=== PATIENT | female | born 1985 | race Caucasian/White ===

== ENCOUNTER 2016-10-05 19:57 | Emergency (ER) | payer MEDICARE, MEDICAID ==
[~2016-10-05 19:57] MED LIST: ADDERALL30 MG PO; ALEVE 220MG220 MG PO; ALPRAZOLAM1 MG PO; AMBIEN10 MG PO; AMBIEN5 M1 PO; AMOXICILLIN875 MG PO; BACTRIM DS 8001 TAB PO; CEPHALEXIN500 M1 PO; CEPHALEXIN500 M2 PO; FLEXERIL 1010 MG/TAB PO; LATUDA80 MG PO; LEVSIN-SL0.125 MG SL; METRONIDAZOLE500 M1 PO; NAPROSYN500 M1 PO; NORCO 325 MG-51 TAB PO; NORCO 325 MG-7.1 TA1 PO; OXYCODONE15 MG PO; PERCOCET 325 MG1 TA2 PO; PREDNISONE20 M1 PO; PROVENTIL0.09 MG/A1 IH; XANAX1 M1 PO; XANAX2 MG PO; ZOFRAN ODT8 M1 PO; ZOFRAN4 M1 PO; ZOLOFT100 MG PO
[2016-10-05] MEDS ORDERED: NORCO 325 MG-51 TAB PO (20:02)
[2016-10-05] MEDS ORDERED: AMOXICILLIN 50500 MG PO (20:02)
[2016-10-31] MEDS ORDERED: AMBIEN10 MG PO (14:39)
== END 2016-10-05 20:10 | disposition home or self-care (01) ==
LOC: ED 19:57
DX: K08.89 Other specified disorders of teeth and supporting structures (principal); K03.81 Cracked tooth; K01.1 Impacted teeth

== ENCOUNTER 2016-10-23 21:24 | Emergency (ER) | payer MEDICARE, MEDICAID ==
[~2016-10-23 21:24] MED LIST changes: +AMOXICILLIN 50500 MG PO
[2016-10-31] MEDS ORDERED: AMBIEN10 MG PO (14:39)
== END 2016-10-23 23:08 | disposition home or self-care (01) ==
LOC: ED 21:24
DX: N83.291 Other ovarian cyst, right side (principal); F17.210 Nicotine dependence, cigarettes, uncomplicated; F12.10 Cannabis abuse, uncomplicated
CPT/HCPCS: J1885

== ENCOUNTER → 2016-10-25 | Outpatient (CLI) | payer MEDICARE, MEDICAID ==
[~2016-10-25] MED LIST changes: +FLAGYL500 M1 PO; +IBUPROFEN800 MG PO; +NEURONTIN300 M1 PO
== END ==
LOC: RAD 08:56
DX: R10.31 Right lower quadrant pain (principal); Z98.890 Other specified postprocedural states

== ENCOUNTER 2016-10-27 21:28 | Emergency (ER) | payer MEDICARE, MEDICAID ==
[~2016-10-27 21:28] MED LIST changes: -FLAGYL500 M1 PO; -IBUPROFEN800 MG PO; -NEURONTIN300 M1 PO
[2016-10-27] MEDS ORDERED: FLAGYL500 M1 PO (22:55)
[2016-10-31] MEDS ORDERED: AMBIEN10 MG PO (14:39)
== END 2016-10-27 23:03 | disposition home or self-care (01) ==
LOC: ED 21:28
DX: N76.0 Acute vaginitis (principal); R10.32 Left lower quadrant pain; R10.31 Right lower quadrant pain
CPT/HCPCS: J1885; Q0111

== ENCOUNTER 2016-10-31 14:50 | Emergency (ER) | payer MEDICARE, MEDICAID ==
[~2016-10-31 14:50] MED LIST changes: +FLAGYL500 M1 PO
[2016-10-31] MEDS ORDERED: IBUPROFEN800 MG PO (16:03)
== END 2016-10-31 16:06 | disposition home or self-care (01) ==
LOC: ED 14:50
DX: S80.01XA Contusion of right knee, initial encounter (principal); W19.XXXA Unspecified fall, initial encounter; Y92.027 Garden or yard of mobile home as the place of occurrence of the external cause

== ENCOUNTER 2017-02-04 20:54 | Emergency (ER) | payer MEDICARE ==
[~2017-02-04] VITALS: Ht 149.9 cm; Wt 97.7 kg
[~2017-02-04 20:54] MED LIST changes: +IBUPROFEN800 MG PO
[2017-02-04] MEDS ORDERED: NEURONTIN300 M1 PO (21:12)
[2017-02-04 21:20] VITALS: BP 147/90
== END 2017-02-04 21:20 | disposition home or self-care (01) ==
LOC: ED 20:54
DX: M79.2 Neuralgia and neuritis, unspecified (principal); Z98.890 Other specified postprocedural states
CPT/HCPCS: J1885

== ENCOUNTER 2017-02-17 01:12 | Emergency (ER) | payer MEDICARE ==
[~2017-02-17] VITALS: Ht 149.9 cm; Wt 97.7 kg
[~2017-02-17 01:12] MED LIST changes: +NEURONTIN300 M1 PO
[2017-02-17 01:25] VITALS: BP 140/85
== END 2017-02-17 01:59 | disposition left against medical advice (07) ==
LOC: ED 01:12
DX: S01.512A Laceration without foreign body of oral cavity, initial encounter (principal); S00.93XA Contusion of unspecified part of head, initial encounter; Y04.0XXA Assault by unarmed brawl or fight, initial encounter

== ENCOUNTER 2017-08-08 01:29 | Emergency (ER) | payer MEDICARE ==
[~2017-08-08] VITALS: Ht 149.9 cm; Wt 100.8 kg
[2017-08-08 02:26] LABS: EOS # 0.1 (0.04-0.40); HEMATOCRIT 38.3 % (37.0-47.0); HEMOGLOBIN 12.5 g/dL (12.5-16.0); LYMPH# 2.8 (1.50-4.00); MEAN CELL VOLUME 83 fl (78-100); MEAN CORPUSCULAR HEMOGLOBIN 27 pg (27-31); MEAN CORPUSCULAR HGB CONC 33 g/dL (33-37); MEAN PLATELET VOLUME 11.7 fl (7.4-10.4); MONO # 0.9 (0.20-0.80); NEU # 3.2 (1.40-6.50); PLATELET COUNT 271 K/mm3 (130-400); RED BLOOD COUNT 4.63 M/mm3 (4.10-5.30); RED CELL DISTRIBUTION WIDTH 14.6 % (11.5-14.5); WHITE BLOOD COUNT 7.1 K/mm3 (4.8-10.8)
[2017-08-08] MEDS ORDERED: GUAIFEN-CODEIN118 ML PO (02:56)
[2017-08-08] MEDS ORDERED: PREDNISONE20 M1 PO (02:56)
[2017-08-08 03:59] VITALS: BP 119/74
== END 2017-08-08 03:10 | disposition home or self-care (01) ==
LOC: ED 01:29
PROVIDERS: Family Medicine
DX: J45.909 Unspecified asthma, uncomplicated (principal); F31.9 Bipolar disorder, unspecified; F41.9 Anxiety disorder, unspecified; F17.200 Nicotine dependence, unspecified, uncomplicated; F12.90 Cannabis use, unspecified, uncomplicated

== ENCOUNTER → 2018-03-30 | Outpatient (CLI) | payer MEDICARE, MEDICAID ==
[~2018-03-30] MED LIST changes: +GUAIFEN-CODEIN118 ML PO
== END ==
LOC: RAD 15:43
DX: R10.2 Pelvic and perineal pain (principal)

== ENCOUNTER 2018-04-10 13:09 | Emergency (ER) | payer MEDICARE, MEDICAID ==
[~2018-04-10] VITALS: Ht 149.9 cm; Wt 108.6 kg
[2018-04-10] MEDS ORDERED: LAMOTRIGINE100 M3 PO (13:16)
[2018-04-10] MEDS ORDERED: QUETIAPINE FUMA25 M3 PO (13:16)
[2018-04-10] MEDS ORDERED: TRAMADOL 50 MG TAB PO (13:58)
[2018-04-10] MEDS ORDERED: CEPHALEXIN500 M1 PO (13:58)
[2018-04-10 14:23] VITALS: BP 118/63
== END 2018-04-10 14:13 | disposition home or self-care (01) ==
LOC: ED 13:09
DX: S91.312A Laceration without foreign body, left foot, initial encounter (principal); W22.8XXA Striking against or struck by other objects, initial encounter; Y92.009 Unspecified place in unspecified non-institutional (private) residence as the place of occurrence of the external cause

== ENCOUNTER 2020-04-14 23:54 | Emergency (ER) | payer MEDICARE, MEDICAID ==
[~2020-04-14] VITALS: Ht 149.9 cm; Wt 116.8 kg
[~2020-04-14 23:54] MED LIST changes: +LAMOTRIGINE100 M3 PO; +QUETIAPINE FUMA25 M3 PO; +TRAMADOL 50 MG TAB PO
[2020-04-15] MEDS ORDERED: VRAYLAR3 MG PO (00:21)
[2020-04-15] MEDS ORDERED: DESYREL DIVIDO150 M1 PO (00:21)
[2020-04-15] MEDS ORDERED: ZOLOFT 100MG100 MG PO (00:21)
[2020-04-15] MEDS ORDERED: KLONOPIN 1MG1 MG PO (00:22)
[2020-04-15] MEDS ORDERED: NORCO 325 MG-51 TA1 PO (00:46)
[2020-04-15 00:56] VITALS: BP 148/86
== END 2020-04-15 00:56 | disposition home or self-care (01) ==
LOC: ED 23:54
DX: M54.5 Low back pain (principal); F41.9 Anxiety disorder, unspecified; F32.9 Major depressive disorder, single episode, unspecified; F17.210 Nicotine dependence, cigarettes, uncomplicated

== ENCOUNTER 2020-04-24 15:54 | Emergency (ER) | payer MEDICARE, MEDICAID ==
[~2020-04-24 15:54] MED LIST changes: +DESYREL DIVIDO150 M1 PO; +KLONOPIN 1MG1 MG PO; +NORCO 325 MG-51 TA1 PO; +VRAYLAR3 MG PO; +ZOLOFT 100MG100 MG PO
[2020-04-24 16:12] VITALS: BP 155/86
== END 2020-04-24 16:51 | disposition left against medical advice (07) ==
LOC: ED 15:54
DX: M54.5 Low back pain (principal)

== ENCOUNTER 2020-08-22 17:01 | Emergency (ER) | payer MEDICARE, MEDICAID ==
[~2020-08-22] VITALS: Ht 149.9 cm; Wt 109.8 kg
[~2020-08-22 17:01] MED LIST changes: +IBU800 M1 PO; +STRATTERA 40MG40 MG PO; +ULTRAM50 M1 PO
[2020-08-22] MEDS ORDERED: SUBOXONE 8 MG-21 FIL SL (17:27)
[2020-08-22] MEDS ORDERED: BUPRENO-NALOX1 EACH SL (17:27)
[2020-08-22] MEDS ORDERED: NEURONTIN300 MG/CAP PO (17:28)
[2020-08-22 18:15] LABS: EOS # 0.1 (0.04-0.40); EOS % 1.7 % (1.0-5.0); HEMATOCRIT 38.8 % (37.0-47.0); HEMOGLOBIN 14.8 g/dL (12.5-16.0); LYMPH# 2.4 (1.50-4.00); MEAN CELL VOLUME 96 fl (78-100); MEAN CORPUSCULAR HGB CONC 38 g/dL (33-37); MEAN PLATELET VOLUME 10.1 fl (7.4-10.4); MONO # 0.7 (0.20-0.80); NEU # 4.3 (1.40-6.50); PLATELET COUNT 302 K/mm3 (130-400); RED BLOOD COUNT 4.03 M/mm3 (4.10-5.30); WHITE BLOOD COUNT 7.5 K/mm3 (4.8-10.8)
[2020-08-22 18:18] LABS: MEAN CORPUSCULAR HEMOGLOBIN 37 pg (27-31); RED CELL DISTRIBUTION WIDTH 18.1 % (11.5-14.5)
[2020-08-22 18:21] LABS: ALBUMIN 4.4 g/dL (3.5-5.0); SODIUM 139 mmol/L (136-145)
[2020-08-22 18:22] LABS: CALCIUM 9.4 mg/dL (8.3-10.5)
[2020-08-22 18:24] LABS: GLUCOSE 100 mg/dL (65-105); TOTAL PROTEIN 7.6 g/dL (6.4-8.3)
[2020-08-22 18:25] LABS: CARBON DIOXIDE 25 mmol/L (22-29)
[2020-08-22 18:26] LABS: TOTAL BILIRUBIN 0.8 mg/dL (0.2-1.2)
[2020-08-22 18:29] LABS: AST-SGOT 25 U/L (5-34)
[2020-08-22 18:30] LABS: ALT/SGPT 27 U/L (0-55)
[2020-08-22 18:37] LABS: TROPONIN-I < 0.03 ng/mL (<0.030)
[2020-08-22 19:26] LABS: D-DIMER 0.57 mg/L FEU (0.15-0.50)
[2020-08-22] MEDS ORDERED: AZITHROMYCIN 250MGPK PO (22:23)
[2020-08-22] MEDS ORDERED: PREDNISONE20 M1 PO (22:23)
[2020-08-22 23:22] VITALS: BP 148/88
== END 2020-08-22 22:34 | disposition left against medical advice (07) ==
LOC: ED 17:01
PROVIDERS: Physician Assistant
DX: J12.9 Viral pneumonia, unspecified (principal); J90 Pleural effusion, not elsewhere classified; F41.9 Anxiety disorder, unspecified; Z20.828 Contact with and (suspected) exposure to other viral communicable diseases; Z88.8 Allergy status to other drugs, medicaments and biological substances; Z79.891 Long term (current) use of opiate analgesic; Z79.899 Other long term (current) drug therapy
CPT/HCPCS: J2060; J2405; J2930; J7030; Q9967

== ENCOUNTER 2020-08-25 15:00 | Emergency (ER) | payer MEDICARE, MEDICAID ==
[~2020-08-25 15:00] MED LIST changes: +AZITHROMYCIN 250MGPK PO; +BUPRENO-NALOX1 EACH SL; +NEURONTIN300 MG/CAP PO; +SUBOXONE 8 MG-21 FIL SL
[2020-08-25 17:03] LABS: EOS % 0.2 % (1.0-5.0); HEMATOCRIT 31.4 % (37.0-47.0); HEMOGLOBIN 9.6 g/dL (12.5-16.0); LYMPH# 1.5 (1.50-4.00); MEAN CELL VOLUME 79 fl (78-100); MEAN CORPUSCULAR HGB CONC 31 g/dL (33-37); MEAN PLATELET VOLUME 11.4 fl (7.4-10.4); MONO # 0.7 (0.20-0.80); NEU # 8.5 (1.40-6.50); PLATELET COUNT 290 K/mm3 (130-400); RED BLOOD COUNT 3.99 M/mm3 (4.10-5.30); RED CELL DISTRIBUTION WIDTH 16.6 % (11.5-14.5); WHITE BLOOD COUNT 10.7 K/mm3 (4.8-10.8)
[2020-08-25 17:05] LABS: ALBUMIN 3.2 g/dL (3.5-5.0); POTASSIUM 4.3 mmol/L (3.5-5.1)
[2020-08-25 17:06] LABS: CALCIUM 8.9 mg/dL (8.3-10.5)
[2020-08-25 17:07] LABS: MEAN CORPUSCULAR HEMOGLOBIN 24 pg (27-31)
[2020-08-25 17:08] LABS: TOTAL PROTEIN 6.2 g/dL (6.4-8.3)
[2020-08-25 17:09] LABS: TOTAL BILIRUBIN 0.3 mg/dL (0.2-1.2)
[2020-08-25] MEDS ORDERED: FUROSEMIDE20 MG PO (17:59)
[2020-08-25 18:23] VITALS: BP 140/97
== END 2020-08-25 18:23 | disposition home or self-care (01) ==
LOC: ED 15:00
PROVIDERS: Family Medicine
DX: J12.9 Viral pneumonia, unspecified (principal); I50.9 Heart failure, unspecified; F31.9 Bipolar disorder, unspecified; Z20.828 Contact with and (suspected) exposure to other viral communicable diseases; Z88.6 Allergy status to analgesic agent; Z79.52 Long term (current) use of systemic steroids

== ENCOUNTER 2020-10-23 16:46 | Emergency (ER) | payer MEDICARE, MEDICAID ==
[~2020-10-23] VITALS: Ht 149.9 cm; Wt 106.8 kg
[~2020-10-23 16:46] MED LIST changes: +FUROSEMIDE20 MG PO
[2020-10-23 17:08] VITALS: BP 165/99
== END 2020-10-23 17:57 | disposition left against medical advice (07) ==
LOC: ED 16:46
DX: M54.6 Pain in thoracic spine (principal); Z88.5 Allergy status to narcotic agent; Z88.8 Allergy status to other drugs, medicaments and biological substances

== ENCOUNTER 2021-02-12 18:33 | Emergency (ER) | payer MEDICARE, MEDICAID ==
[2021-02-12] MEDS ORDERED: CYCLOBENZAPRINE10 M1 PO (19:55)
[2021-02-12 20:02] VITALS: BP 128/58
== END 2021-02-12 20:02 | disposition home or self-care (01) ==
LOC: ED 18:33
DX: M54.42 Lumbago with sciatica, left side (principal); G89.29 Other chronic pain; J45.909 Unspecified asthma, uncomplicated; F17.200 Nicotine dependence, unspecified, uncomplicated
CPT/HCPCS: J1100; J1885

== ENCOUNTER 2021-05-24 19:46 | Emergency (ER) | payer MEDICARE ==
[~2021-05-24 19:46] MED LIST changes: +CYCLOBENZAPRINE10 M1 PO
[2021-05-24 20:24] VITALS: BP 141/87
== END 2021-05-24 20:24 | disposition home or self-care (01) ==
LOC: ED 19:46
DX: M54.42 Lumbago with sciatica, left side (principal); Z88.5 Allergy status to narcotic agent
CPT/HCPCS: J1040

== ENCOUNTER 2021-06-06 12:15 | Emergency (ER) | payer MEDICARE ==
[2021-06-06 12:22] VITALS: BP 162/105
[2021-06-06] MEDS ORDERED: HYDROXYZINE HCL25 M1 PO (12:46)
[2021-06-06] MEDS ORDERED: BUPRENORP-NALO1 EAC1 SL (12:46)
[2021-06-06] MEDS ORDERED: VRAYLAR3 MG PO (12:47)
[2021-06-06] MEDS ORDERED: DESYREL DIVIDO150 M1 PO (12:47)
[2021-06-06] MEDS ORDERED: OLANZAPINE10 M3 PO (12:47)
[2021-06-06] MEDS ORDERED: SERTRALINE50 MG PO (12:47)
[2021-06-06 12:53] LABS: BASO # 0.01 (0.02-0.10); EOS # 0.02 (0.04-0.40); EOS % 0.2 % (1.0-5.0); HEMATOCRIT 44.5 % (37.0-47.0); HEMOGLOBIN 14.2 g/dL (12.5-16.0); LYMPH# 2.55 (1.50-4.00); MEAN CELL VOLUME 77 fl (78-100); MEAN CORPUSCULAR HEMOGLOBIN 24 pg (27-31); MEAN CORPUSCULAR HGB CONC 32 g/dL (33-37); MEAN PLATELET VOLUME 11.9 fl (7.4-10.4); MONO # 1.09 (0.20-0.80); NEU # 8.25 (1.40-6.50); PLATELET COUNT 244 K/mm3 (130-400); RED BLOOD COUNT 5.82 M/mm3 (4.10-5.30); RED CELL DISTRIBUTION WIDTH 14.6 % (11.5-14.5); WHITE BLOOD COUNT 11.9 K/mm3 (4.8-10.8)
[2021-06-06 13:01] LABS: ALBUMIN 4.2 g/dL (3.5-5.0); POTASSIUM 3.5 mmol/L (3.5-5.1); SODIUM 142 mmol/L (136-145)
[2021-06-06 13:02] LABS: CALCIUM 11.4 mg/dL (8.3-10.5)
[2021-06-06 13:03] LABS: GLUCOSE 103 mg/dL (65-105)
[2021-06-06 13:04] LABS: CARBON DIOXIDE 22 mmol/L (22-29); TOTAL PROTEIN 8.6 g/dL (6.4-8.3)
[2021-06-06 13:05] LABS: TOTAL BILIRUBIN 0.3 mg/dL (0.2-1.2)
[2021-06-06 13:09] LABS: AST-SGOT 12 U/L (5-34)
[2021-06-06 13:10] LABS: ALT/SGPT 14 U/L (0-55)
[2021-06-06 13:11] LABS: LIPASE 7 U/L (8-78)
[2021-06-06 13:12] LABS: ALCOHOL IN-HOUSE < 10 mg/dL (<10)
[2021-06-06 14:09] LABS: URINE APPEARANCE CLOUDY; URINE COLOR YELLOW
[2021-06-06 14:10] LABS: URINE BILIRUBIN NEGATIVE (NEGATIVE); URINE BLOOD NEGATIVE (NEGATIVE); URINE GLUCOSE NEGATIVE (NEGATIVE); URINE KETONE NEGATIVE (NEGATIVE); URINE LEUKOCYTE ESTERASE NEGATIVE (NEGATIVE); URINE MUCUS PRESENT (NOT PRESENT); URINE NITRATE NEGATIVE (NEGATIVE); URINE PROTEIN(semi-quant) 1+ mg/dL (NEGATIVE); URINE UROBILINOGEN NORMAL (NORMAL); URINE WBC 0-1 /hpf (0-3)
== END 2021-06-06 21:22 ==
LOC: ED 12:15
PROVIDERS: Nurse Practitioner; Nurse Practitioner Family
DX: T14.91XA Suicide attempt, initial encounter (principal); F31.9 Bipolar disorder, unspecified; E05.90 Thyrotoxicosis, unspecified without thyrotoxic crisis or storm; F11.10 Opioid abuse, uncomplicated

== ENCOUNTER 2021-08-15 16:13 | Emergency (ER) | payer MEDICARE ==
[~2021-08-15 16:13] MED LIST changes: +BUPRENORP-NALO1 EAC1 SL; +HYDROXYZINE HCL25 M1 PO; +OLANZAPINE10 M3 PO; +SERTRALINE50 MG PO
[2021-08-15] MEDS ORDERED: LORAZEPAM1 M1 PO (16:24)
[2021-08-15] MEDS ORDERED: QUETIAPINE FUMA50 MG PO (16:24)
[2021-08-15] MEDS ORDERED: HYDROXYZINE PAM25 M1 PO (16:25)
[2021-08-15] MEDS ORDERED: ZOLPIDEM TART10 MG PO (16:25)
[2021-08-15] MEDS ORDERED: INDERAL 10MG10 MG PO (16:25)
[2021-08-15] MEDS ORDERED: FLONASE ALLERG9.9 ML NS (17:48)
[2021-08-15] MEDS ORDERED: IBU800 M2 PO (17:48)
[2021-08-15 17:56] VITALS: BP 115/70
== END 2021-08-15 17:53 | disposition home or self-care (01) ==
LOC: ED 16:13
DX: J06.9 Acute upper respiratory infection, unspecified (principal); F17.200 Nicotine dependence, unspecified, uncomplicated

== ENCOUNTER 2021-12-14 11:20 | Emergency (ER) | payer MEDICARE ==
[~2021-12-14] VITALS: Ht 149.9 cm; Wt 81.7 kg
[~2021-12-14 11:20] MED LIST changes: +FLONASE ALLERG9.9 ML NS; +HYDROXYZINE PAM25 M1 PO; +IBU800 M2 PO; +INDERAL 10MG10 MG PO; +LORAZEPAM1 M1 PO; +QUETIAPINE FUMA50 MG PO; +ZOLPIDEM TART10 MG PO
[2021-12-14 11:31] VITALS: BP 125/70
[2021-12-14 12:22] LABS: BASO # 0.02 K/mm3 (0.02-0.10); EOS # 0.13 K/mm3 (0.04-0.40); EOS % 2.4 % (1.0-5.0); HEMATOCRIT 34.1 % (37.0-47.0); HEMOGLOBIN 10.9 g/dL (12.5-16.0); MEAN CELL VOLUME 80 fl (78-100); MEAN CORPUSCULAR HEMOGLOBIN 26 pg (27-31); MEAN CORPUSCULAR HGB CONC 32 g/dL (33-37); MEAN PLATELET VOLUME 11.9 fl (7.4-10.4); MONO # 0.74 K/mm3 (0.20-0.80); NEU # 2.91 K/mm3 (1.40-6.50); PLATELET COUNT 197 K/mm3 (130-400); RED BLOOD COUNT 4.27 M/mm3 (4.10-5.30); RED CELL DISTRIBUTION WIDTH 14.7 % (11.5-14.5); WHITE BLOOD COUNT 5.5 K/mm3 (4.8-10.8)
== END 2021-12-14 12:59 | disposition home or self-care (01) ==
LOC: ED 11:20
PROVIDERS: Family Medicine
DX: F41.9 Anxiety disorder, unspecified (principal); J06.9 Acute upper respiratory infection, unspecified; F17.200 Nicotine dependence, unspecified, uncomplicated

== ENCOUNTER 2021-12-28 03:06 | Emergency (ER) | payer OTHER, MEDICARE ==
[~2021-12-28] VITALS: Ht 152.4 cm; Wt 81.7 kg
[2021-12-28] MEDS ORDERED: PRILOSEC OTC20 MG PO (03:16)
[2021-12-28] MEDS ORDERED: ZOLOFT 100MG100 MG PO (03:58)
[2021-12-28] MEDS ORDERED: PROPRANOLOL HCL20 M2 PO (04:00)
[2021-12-28] MEDS ORDERED: PROAIR HFA0.09 MG/AC IH (04:02)
[2021-12-28] MEDS ORDERED: QUETIAPINE FUM100 M1 PO (04:16)
[2021-12-28] MEDS ORDERED: LORAZEPAM1 M1 PO (04:16)
[2021-12-28 04:22] VITALS: BP 145/85
== END 2021-12-28 04:22 | disposition home or self-care (01) ==
LOC: ED 03:06
DX: F31.9 Bipolar disorder, unspecified (principal)

== ENCOUNTER 2022-01-24 19:15 | Emergency (ER) | payer MEDICARE ==
[~2022-01-24] VITALS: Wt 86.2 kg
[~2022-01-24 19:15] MED LIST changes: +PRILOSEC OTC20 MG PO; +PROAIR HFA0.09 MG/AC IH; +PROPRANOLOL HCL20 M2 PO; +QUETIAPINE FUM100 M1 PO
[2022-01-24 19:58] LABS: BASO # 0.03 K/mm3 (0.02-0.10); HEMATOCRIT 37.2 % (37.0-47.0); HEMOGLOBIN 11.9 g/dL (12.5-16.0); LYMPH# 3.32 K/mm3 (1.50-4.00); MEAN CELL VOLUME 76 fl (78-100); MEAN CORPUSCULAR HEMOGLOBIN 24 pg (27-31); MEAN CORPUSCULAR HGB CONC 32 g/dL (33-37); MEAN PLATELET VOLUME 12.6 fl (7.4-10.4); MONO # 1.01 K/mm3 (0.20-0.80); NEU # 5.97 K/mm3 (1.40-6.50); PLATELET COUNT 231 K/mm3 (130-400); RED CELL DISTRIBUTION WIDTH 14.8 % (11.5-14.5); WHITE BLOOD COUNT 10.5 K/mm3 (4.8-10.8)
[2022-01-24 20:08] LABS: POTASSIUM 3.7 mmol/L (3.5-5.1); SODIUM 139 mmol/L (136-145)
[2022-01-24 20:09] LABS: CALCIUM 9.8 mg/dL (8.3-10.5)
[2022-01-24 20:10] LABS: GLUCOSE 67 mg/dL (65-105); TOTAL PROTEIN 7.7 g/dL (6.4-8.3)
[2022-01-24 20:11] LABS: CARBON DIOXIDE 20 mmol/L (22-29)
[2022-01-24 20:12] LABS: TOTAL BILIRUBIN 0.3 mg/dL (0.2-1.2)
[2022-01-24 20:13] LABS: URINE APPEARANCE CLEAR; URINE BILIRUBIN NEGATIVE (NEGATIVE); URINE BLOOD NEGATIVE (NEGATIVE); URINE COLOR YELLOW; URINE GLUCOSE NEGATIVE (NEGATIVE); URINE KETONE NEGATIVE (NEGATIVE); URINE LEUKOCYTE ESTERASE NEGATIVE (NEGATIVE); URINE NITRATE NEGATIVE (NEGATIVE); URINE PROTEIN(semi-quant) TRACE (NEGATIVE); URINE UROBILINOGEN NORMAL (NORMAL); URINE WBC 0-1 /hpf (0-3)
[2022-01-24 20:16] LABS: AST-SGOT 24 U/L (5-34)
[2022-01-24 20:17] LABS: ALT/SGPT 19 U/L (0-55)
[2022-01-24 20:38] LABS: ALCOHOL IN-HOUSE < 10 mg/dL (<10)
[2022-01-24] MEDS ORDERED: DIVALPROEX SOD500 MG PO (21:09)
[2022-01-24 21:17] VITALS: BP 136/85
== END 2022-01-24 21:17 | disposition home or self-care (01) ==
LOC: ED 19:15
PROVIDERS: Family Medicine
DX: G40.409 Other generalized epilepsy and epileptic syndromes, not intractable, without status epilepticus (principal); S00.03XA Contusion of scalp, initial encounter; F19.10 Other psychoactive substance abuse, uncomplicated; Z91.14 Patient's other noncompliance with medication regimen; W18.39XA Other fall on same level, initial encounter; Y92.149 Unspecified place in prison as the place of occurrence of the external cause